=== PATIENT | male | born 2000 | race Caucasian/White ===

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

== ENCOUNTER 2020-07-17 10:02 | Emergency (ER) | payer OTHER ==
[2020-07-17] MEDS ORDERED: Ibuprofen 800 MG Tab PO ONE (10:29)
--- NOTE | 2020-07-17 10:35 | EDM.PDOC ---
ED HPI GENERAL MEDICAL PROBLEM - General Chief Complaint: Respiratory Problem Stated Complaint: CHEST PAIN Time Seen by Provider: 07/17/20 10:20 Source of Information: Reports: Patient, Old Records History Limitations: Reports: No Limitations - History of Present Illness INITIAL COMMENTS - FREE TEXT/NARRATIVE: Je comes into [facility] ED with an 18 hr hx of parasternal chest pains, sharp at times, annoying with deep breaths. There is no cough, SOB, wheezing, fever, chills or sweats. There are no palpitations, radiation of pain into the back or torso, no sxs of reflux, nausea or belching. He has tried no analgesics. Of interest is a PMH of +Covid 19 last month, no reported sequelae. - Related Data Allergies Allergy/AdvReac Type Severity Reaction Status Date / Time No Known Allergies Allergy Verified 07/17/20 10:35 Home Meds: Home Meds NK [No Known Home Meds] 07/14/19 [History] Past Medical History - Past Health History Medical/Surgical History: Denies Medical/Surgical History Social & Family History - Family History Family Medical History: Noncontributory (no family history of arrhythmias or sudden unexplained ) - Caffeine Use Caffeine Use: Reports: Coffee, Energy Drinks, Soda, Tea - Sexual History Sexual History: Reports: None (no girlfriend currently) - Living Situation & Occupation Occupation: Student ED ROS GENERAL - Review of Systems Review Of Systems: See Below Constitutional: Reports: No Symptoms HEENT: Reports: No Symptoms Respiratory: Reports: No Symptoms Cardiovascular: Reports: Chest Pain, Palpitations GI/Abdominal: Reports: No Symptoms : Reports: No Symptoms Musculoskeletal: Reports: No Symptoms Skin: Reports: No Symptoms Neurological: Reports: No Symptoms Psychiatric: Reports: No Symptoms Hematologic/Lymphatic: Reports: No Symptoms Immunologic: Reports: No Symptoms ED EXAM, GENERAL - Physical Exam Exam: See Below Exam Limited By: No Limitations General Appearance: Alert, WD/WN, No Apparent Distress Eye Exam: Bilateral Eye: EOMI, Normal Inspection, PERRL Ears: Normal External Exam Nose: Normal Inspection Throat/Mouth: Normal Inspection, Normal Oropharynx Neck: Normal Inspection, Supple, Non-Tender Respiratory/Chest: No Respiratory Distress, Lungs Clear, Normal Breath Sounds, No Accessory Muscle Use, Other (mild parasternal chest tenderness, L>R) GI/Abdominal: Normal Bowel Sounds, Soft, Non-Tender, No Organomegaly, No Distention, No Mass (Male) Exam: Deferred Rectal (Males) Exam: Deferred Back Exam: Normal Inspection Extremities: Normal Inspection Neurological: Alert, Oriented, CN II-XII Intact, Normal Gait, No Motor/Sensory Deficits Psychiatric: Normal Affect, Normal Mood Skin Exam: Warm, Dry, Intact, Normal Color, No Rash Lymphatic: No Adenopathy Course - Vital Signs Text/Narrative:: Following assessment, some screening labs and a chest x ray were obtained, and nondiagnositic. Atypical chest pain with musculoskeletal features is suspected clinically, and will be managed with NSAIDs. - Orders/Labs/Meds Orders: Active Orders 24 hr Category Date Time Status Chest 1V Frontal [CR] Stat Exams 07/17/20 10:29 Taken Labs: Laboratory Tests 07/17/20 07/17/20 07/17/20 Range/Units 10:40 10:40 10:40 WBC 13.2 H (4.5-12.0) X10-3/uL RBC 5.41 (4.30-5.75) x10(6)uL Hgb 15.0 (13.5-17.8) g/dL Hct 44.7 (30.0-51.3) % MCV 82.6 (80-96) fL MCH 27.7 (27.7-33.6) pg MCHC 33.5 (32.2-35.4) g/dL RDW 11.4 L (11.5-15.5) % Plt Count 224 (125-369) X10(3)uL MPV 6.5 L (7.4-10.4) fL Neut % (Auto) 83.6 H (46-82) % Lymph % (Auto) 7.9 L (13-37) % Barren % (Auto) 6.6 (4-12) % Eos % (Auto) 1 (1.0-5.0) % Baso % (Auto) 1 (0-2) % Neut # (Auto) 11.0 H (1.6-8.3) # Lymph # (Auto) 1.0 (0.6-5.0) # Barren # (Auto) 0.9 (0.0-1.3) # Eos # (Auto) 0.2 (0.0-0.8) # Baso # (Auto) 0.1 (0.0-0.2) # D-Dimer, Quantitative < 0.19 (0.0-0.59) mg/LFEU Sodium 139 (135-145) mmol/L Potassium 4.3 D (3.5-5.3) mmol/L Chloride 102 (100-110) mmol/L Carbon Dioxide 31 (21-32) mmol/L BUN 13 (7-18) mg/dL Creatinine 0.9 (0.70-1.30) mg/dL Est Cr Clr Drug Dosing TNP Estimated GFR (MDRD) > 60 (>60) BUN/Creatinine Ratio 14.4 (9-20) Glucose 91 (80-116) mg/dL Calcium 9.0 (8.6-10.2) mg/dL Meds: Medications Discontinued Medications Generic Name Dose Route Start Last Admin Trade Name Freq PRN Reason Stop Dose Admin Ibuprofen 800 mg 07/17/20 10:29 07/17/20 10:39 Motrin PO 07/17/20 10:30 800 mg ONETIME ONE Administration Departure - Departure Time of Disposition: 11:55 Disposition: Home, Self-Care 01 Condition: Fair Clinical Impression: Atypical chest pain - Discharge Information *PRESCRIPTION DRUG MONITORING PROGRAM REVIEWED*: Not Applicable Instructions: Nonspecific Chest Pain, Adult Referrals: Eileen Monterroso NP [Primary Care Provider] - Forms: ED Department Discharge Care Plan Goals: Follow up as needed Ibuprofen for discomfort - Problem List & Annotations (1) Atypical chest pain SNOMED Code(s): 777849087 Code(s): R07.89 - OTHER CHEST PAIN Status: Acute Current Visit: Yes Annotation/Comment:: I suggested NSAIDs, rest, and medical leave from work today. - Problem List Review Problem List Initiated/Reviewed/Updated: Yes - My Orders Last 24 Hours: My Active Orders 07/17/20 10:29 Chest 1V Frontal [CR] Stat - Assessment/Plan Last 24 Hours: My Active Orders 07/17/20 10:29 Chest 1V Frontal [CR] Stat Plan: Follow up with PCP if needed.
== END 2020-07-17 11:56 | disposition home or self-care (01) ==
LOC: FB.ED 10:02
DX: R07.89 Other chest pain (principal)
CPT/HCPCS: 36415; 71045; 80048; 85025; 85379; 99285; A9270; 99283